=== PATIENT | male | born 1965 | race Caucasian/White ===

== ENCOUNTER 2017-02-06 10:23 | Day surgery (SDC) | payer OTHER ==
--- NOTE | ~2017-02-06 | EGD ---
EGD REPORT [facility] [address] [place] [address] NAME: BILL BAE : 67 STATUS : REG [facility] PAT#: [id number] AGE: 52 ADM/REG DATE : 02/06/17 MR#: [id number] REPORT SERV DATE: 02/06/17 DICTATED BY: JANUARY MCKENNA DATE: 02/06/17 REPORT STATUS : Draft [facility]ANSCRIBED BY: [facility] DATE: 02/06/17 Endoscopy Center Patient Name: Bill Bae Date of : 1965 Attending MD: JANUARY MCKENNA MD Procedure Date No Time: 02/06/2017 Procedure: Upper GI endoscopy Indications: Heartburn, Suspected esophageal reflux, Heme positive stool, Diarrhea Referring MD: LIZETT POND Medicines: as per anesthesia Complications: No immediate complications. Procedure: Pre-Anesthesia Assessment: - ASA Grade Assessment: II - A patient with mild systemic disease. After obtaining informed consent, the endoscope was passed under direct vision. Throughout the procedure, the patient's blood pressure, pulse, and oxygen saturations were monitored continuously. The GIF [id number] was introduced through the mouth, and advanced to the third part of duodenum. The upper GI endoscopy was accomplished without difficulty. The patient tolerated the procedure. Findings: The examined esophagus was normal. A small hiatus hernia was present. The examined duodenum was normal. Biopsies were taken with a cold forceps for histology. Impression: - Normal esophagus. - Hiatus hernia. - Normal examined duodenum. Biopsied. Recommendation: - Await pathology results. Procedure Code(s): --- Professional --- 97514, Esophagogastroduodenoscopy, flexible, transoral; with biopsy, single or multiple Diagnosis Code(s): --- Professional --- K44.9, Diaphragmatic hernia without obstruction or gangrene R12, Heartburn R19.5, Other fecal abnormalities EGD REPORT [facility] [address] [place] [address] NAME: BILL BAE : [birth year] STATUS : REG [facility] PAT#: [id number] AGE: 52 ADM/REG DATE : 02/06/17 MR#: [id number] REPORT SERV DATE: 02/06/17 DICTATED BY: JANUARY MCKENNA. DATE: 02/06/17 REPORT STATUS : Draft TRANSCRIBED BY: [employer] DATE: 02/06/17 R19.7, Diarrhea, unspecified CPT copyright 2013 [employer]. All rights reserved. The codes documented in this report are preliminary and upon voice network administrator review may be revised to meet current compliance requirements. JANUARY MCKENNA MD 02/06/2017 1:04 PM This report has been signed electronically. Number of Addenda: 0 Note Initiated On: 02/06/2017 12:47 PM Scope Withdrawal Time 0 hours 0 minutes 0 seconds [address] [facility] [address] [place] [address]
--- NOTE | ~2017-02-06 | EGD ---
EGD REPORT [facility] [address] [place] [address] NAME: BILL BAE : [birth year] STATUS : REG [facility] PAT#: [id number] AGE: 52 ADM/REG DATE : 02/06/17 MR#: [id number] REPORT SERV DATE: 02/06/17 DICTATED BY: DATE: REPORT STATUS : Draft TRANSCRIBED BY: [employer] DATE: 02/06/17 Endoscopy Center Patient Name: Bill Bae Date of : 1965 Attending MD: JANUARY MCKENNA MD Procedure Date No Time: 02/06/2017 Procedure: Colonoscopy Indications: Abdominal pain in the left lower quadrant, Clinically significant diarrhea of unexplained origin, Gastrointestinal occult blood loss, Rectal bleeding, FH of Colon Cancer - 1st degree relative Referring MD: LIZETT POND Medicines: as per anesthesia Complications: No immediate complications. Procedure: Pre-Anesthesia Assessment: - ASA Grade Assessment: II - A patient with mild systemic disease. After I obtained informed consent, the scope was passed under direct vision. Throughout the procedure, the patient's blood pressure, pulse, and oxygen saturations were monitored continuously. The [facility] [id number] was introduced through the anus and advanced to the cecum, identified by appendiceal orifice and ileocecal valve. The colonoscopy was performed without difficulty. The patient tolerated the procedure. The quality of the bowel preparation was adequate to identify polyps. Findings: The perianal and digital rectal examinations were normal. An infiltrative, polypoid, sessile, ulcerated partially obstructing large mass was found in the recto-sigmoid colon. The mass was partially circumferential. Oozing was present. This was biopsied with a cold forceps for histology. A few small and large-mouthed diverticula were found in the sigmoid colon, in the descending colon and in the transverse colon. Internal hemorrhoids were found during endoscopy and were mild. Four biopsies were obtained in the rectum and in the ascending colon with cold forceps for histology. Impression: - Likely malignant partially obstructing tumor in the recto-sigmoid colon. Removal was not done. Biopsied. - Diverticulosis in the sigmoid colon, in the descending colon and in the transverse colon. - Internal hemorrhoids. - Four biopsies were obtained in the rectum and in the EGD REPORT [address] [address] NAME: BILL BAE : [birth year] STATUS : REG [facility]#: [id number] AGE: 52 ADM/REG DATE : 02/06/17 MR#: [id number] REPORT SERV DATE: 02/06/17 DICTATED BY: DATE: REPORT STATUS : Draft TRANSCRIBED BY: [employer] DATE: 02/06/17 ascending colon. Recommendation: - Await pathology results. - Refer to a surgeon. Procedure Code(s): --- Professional --- 39353, Colonoscopy, flexible, proximal to splenic flexure; with biopsy, single or multiple Diagnosis Code(s): --- Professional --- D49.0, Neoplasm of unspecified behavior of digestive system K64.8, Other hemorrhoids K57.30, Diverticulosis of large intestine without perforation or abscess without bleeding R10.32, Left lower quadrant pain R19.7, Diarrhea, unspecified R19.5, Other fecal abnormalities K62.5, Hemorrhage of anus and rectum Z80.0, Family history of malignant neoplasm of digestive organs CPT copyright 2013 [employer]. All rights reserved. The codes documented in this report are preliminary and upon heel sander review may be revised to meet current compliance requirements. JANUARY MCKENNA MD 02/06/2017 1:42 PM This report has been signed electronically. Number of Addenda: 0 Note Initiated On: 02/06/2017 12:44 PM Scope Withdrawal Time 0 hours 13 minutes 34 seconds [id number] [place] [id number]
[~2017-02-06 10:23] MED LIST: COZAAR100 MG PO; NORV5 PO; PRILO PO
== END 2017-02-06 23:59 | disposition home or self-care (01) ==
LOC: DMU 10:23
PROVIDERS: Internal Medicine Gastroenterology
PROC: 0DBK8ZX Excision of Ascending Colon, Via Natural or Artificial Opening Endoscopic, Diagnostic (ICD-10-PCS; 2017-02-06)
PROC: 0DBN8ZX Excision of Sigmoid Colon, Via Natural or Artificial Opening Endoscopic, Diagnostic (ICD-10-PCS; principal; 2017-02-06 11:30)
PROC: 0DBP8ZX Excision of Rectum, Via Natural or Artificial Opening Endoscopic, Diagnostic (ICD-10-PCS; 2017-02-06 11:30)
DX: C19 Malignant neoplasm of rectosigmoid junction (principal); K64.8 Other hemorrhoids; K57.30 Diverticulosis of large intestine without perforation or abscess without bleeding; R10.32 Left lower quadrant pain; R19.7 Diarrhea, unspecified; R19.5 Other fecal abnormalities; R12 Heartburn; K44.9 Diaphragmatic hernia without obstruction or gangrene; K62.5 Hemorrhage of anus and rectum; K21.9 Gastro-esophageal reflux disease without esophagitis; I10 Essential (primary) hypertension; Z98.890 Other specified postprocedural states; Z80.0 Family history of malignant neoplasm of digestive organs; Z79.899 Other long term (current) drug therapy
CPT/HCPCS: 88305

== ENCOUNTER 2017-02-20 06:04 | Inpatient (IN) | payer OTHER ==
[2017-02-14 10:38] LABS: BASOPHILS 0.4 %; BASOPHILS ABSOLUTE 0.04 10/3/uL (0.0-0.16); EOSINOPHILS 3.6 %; EOSINOPHILS ABSOLUTE 0.33 10/3/uL (0.0-0.53); HEMATOCRIT 28.1 % (40.0-51.0); HEMOGLOBIN 7.8 g/dL (13.6-17.8); IMMATURE GRANULOCYTES 0.3 %; IMMATURE GRANULOCYTES ABSOLUTE 0.03 10/3/uL (0.0-0.11); LYMPHOCYTES ABSOLUTE 2.79 10/3/uL (0.67-4.30); MANUAL DIFF NO %; MEAN CORPUS HGB CONC 27.8 g/dL (32.0-36.0); MEAN CORPUSCULAR HEMOGLOB 17.8 pg (26.0-34.0); MEAN CORPUSCULAR VOLUME 64.2 fL (80-100); MEAN PLATELET VOLUME 9.7 fL (9.2-13.0); MONOCYTES 11.6 %; MONOCYTES ABSOLUTE 1.08 10/3/uL (0.21-1.20); NEUTROPHILS 54.1 %; NEUTROPHILS ABSOLUTE 5.02 10/3/uL (2.02-8.40); PLATELET COUNT 404 10/3/uL (150-400); RED CELL COUNT 4.38 10/6/uL (4.7-6.1); WHITE BLOOD CELLS 9.3 10/3/uL (4.5-10.5)
[2017-02-14 10:51] LABS: ALBUMIN 3.6 G/DL (3.5-5.0); ALKALINE PHOSPHATASE 69 U/L (45-117); BUN (BLOOD UREA NITROGEN) 15 MG/DL (6-23); CALCIUM, SERUM 9.1 MG/DL (8.5-10.4); CHLORIDE, SERUM 107 MMOL/L (96-112); CO2 (CARBON DIOXIDE) 27 MMOL/L (24-34); CREATININE 0.88 MG/DL (0.70-1.30); GFR AFRICAN AMERICAN 115 ML/MIN (>=60); GFR NON AFRICAN AMERICAN 99 ML/MIN (>=60); GLOBULIN 3.5 G/DL (2.5-4.1); GLUCOSE, SERUM 94 MG/DL (60-99); POTASSIUM, SERUM 4.5 MMOL/L (3.5-5.3); SGOT(AST) 20 U/L (5-40); SGPT(ALT) 28 U/L (5-65); SODIUM, SERUM 139 MMOL/L (135-148); TOTAL BILIRUBIN 0.3 MG/DL (0-1.2); TOTAL PROTEIN 7.1 G/DL (6.0-8.5)
[2017-02-14 10:53] LABS: ANISOCYTOSIS 1+ (5-10/OIF) (0-5/OIF)
[2017-02-14 10:54] LABS: HYPOCHROMIA 3+ (>30/OIF) (0-2/OIF); MICROCYTES 4+ (>50/OIF) (0-5/OIF); OVALOCYTES 1+ (3-10/OIF) (0-2/OIF); PLATELET ESTIMATE SLT INC (ADEQUATE); RBC MORPHOLOGY ABN (NORMAL)
--- NOTE | ~2017-02-20 | OP ---
Record Of Operation [facility] [address] [place]. [address] NAME: FARHAT DEL VALLE : [birth year] STATUS : ADM IN [facility]#: [id number] AGE: 52 ADM/REG DATE : 02/20/17 MR#: [id number] REPORT SERV DATE: 02/20/17 DICTATED BY: TITA HANEY III DATE: 02/20/17 REPORT STATUS : Draft TRANSCRIBED BY: MODL DATE: 02/20/17 DATE OF PROCEDURE: 02/20/2017 PREOPERATIVE DIAGNOSIS: Biopsy-proven cancer of the distal sigmoid colon associated GI bleeding and obstructive symptoms. POSTOPERATIVE DIAGNOSIS: Biopsy-proven cancer of the distal sigmoid colon associated GI bleeding and obstructive symptoms. PROCEDURE: Low anterior resection of the rectum with sigmoidoscopy and primary anastomosis. SURGEON: Tita Haney M.D. ANESTHESIA: General with intubation. COMPLICATIONS: None. ESTIMATED BLOOD LOSS: 30 mL. SPECIMENS: Distal sigmoid colon and proximal rectum. DRAINS: [place] and subcutaneous tissue. LAP AND SPONGE COUNT: Correct x3. BRIEF HISTORY: This 52-year-old male was recently diagnosed with a distal sigmoid colon cancer. This was a large cancer associated rectal bleeding, profound anemia, and obstructive symptoms. It was felt that low anterior resection of rectum or sigmoid colectomy was indicated. These procedures, the risks, benefits, alternatives, including not limited to the risk for bleeding, infection, enterotomy, injury to abdominal structure, postop small bowel obstruction, ileus, incisional hernia, dehiscence, anastomotic leak requiring reoperation, colostomy, ureteral injury, disturbance or loss of sexual function, fecal incontinence or urinary incontinence, and unforeseen complications including deep venous thrombosis, pulmonary embolus, myocardial infarction, stroke, pneumonia, and , were fully and completely explained to the patient and his family prior to surgery. The fact that this was a major operation with risk for major morbidity and mortality has been explained. The length of recovery was explained. The patient had questions, which were answered. He understood the risks and agreed to surgery as planned. FINDINGS: The patient had extremely large cancer of the distal sigmoid colon. The low anterior resection of the rectum was required in order to obtain clear margins distally. The patient had no evidence for carcinomatosis or peritoneal implants. DESCRIPTION OF PROCEDURE: After being appropriately identified and after discussing the risks of surgery with the patient's family again in the preoperative area and after appropriate bowel preparation at home, the patient was taken to the operating room and Record Of Operation [address] [place]. [address] NAME: FARHAT DEL VALLE : [birth year] STATUS : ADM IN PAT#: [id number] AGE: 52 ADM/REG DATE : 02/20/17 MR#: [id number] REPORT SERV DATE: 02/20/17 DICTATED BY: TITA HANEY III DATE: 02/20/17 REPORT STATUS : Draft TRANSCRIBED BY: NOE DATE: 02/20/17 placed in the supine position on the operating room table. General anesthesia was administered. He was intubated without difficulty. His legs were placed in stirrups. They were carefully and appropriately padded and protected. A Littlejohn catheter was inserted. The abdomen and perineum were prepped and draped sterilely in the usual fashion. After an appropriate "time-out" per discharge standards, a midline incision was made from just below the umbilicus towards the pubis. The incision was continued through subcutaneous tissue. The patient is moderately obese hence abdominal wall was very thick. The incision was continued through the fascia. Hemostasis was controlled. The abdominal cavity was entered. There was noted to be a large palpable obvious malignant mass at the distal sigmoid colon just above the peritoneal reflection. There was no evidence for carcinomatosis or peritoneal implants. Using sharp dissection, peritoneal reflection to the distal sigmoid colon and left colon was divided along the line of Toldt. The sigmoid colon was mobilized medially. We selected a point for division of the sigmoid colon near its junction with the left colon. A window was made mesentery to the colon at this point. A YAHIR stapler used to divide the colon at this point. Using sharp dissection, perineum from this point along the base of the mesentery was then scored with the cautery. Using sharp dissection, a bladder flap was raised anteriorly over the rectum. The tumor itself was above the peritoneal reflection, but the dissection required below the peritoneal reflection in proximal rectum in order to obtain clear margins. The mesocolon was then divided to the sigmoid colon along its base. This was done using the Harmonic scalpel. The inferior mesenteric artery and vein were individually isolated, ligated, as far proximal as possible. The dissection was continued distally. Using sharp dissection, the proximal rectum was mobilized. The lateral attachments on either side were carefully divided sharply. The mesorectum was carefully divided posteriorly so as to perform correct oncologic dissection of the lymphovascular supply to the first portion of the rectum. We continued our dissection into the proximal rectum mobilized the proximal rectum, several centimeters distal to the tumor. A contour stapler was used to divide the proximal rectum several centimeter below the peritoneal reflection. The mesentery to this portion of rectum was then divided along its base, so as to obtain an intact mesorectum. The specimen was thus removed and sent to pathology interpreted as containing the tumor with clear margins. In using the stapling device, the distal end of the rectum did not close well. For this reason, the distal rectum was reclosed after it had been divided, using a contour stapler. The rectum at this point, which had been in the staple line, was excised and this was sent as a distal rectal margin for permanent pathology. We then performed an end-to-end anastomosis between the divided proximal sigmoid colon, left colon, and the distal rectum. This was performed using the EEA stapler. A 2-0 Prolene pursestring was then placed around the divided end of the proximal sigmoid colon. The staple line was excised. Sizers were placed into the lumen of the colon, it was determined that a #29 EEA stapler was the appropriate size. The anvil was removed from the stapling device and placed into the lumen of the colon and the pursestring secured. Record Of Operation [place] [id number] [facility] [place]. [address] NAME: FARHAT DEL VALLE : 67 STATUS : ADM IN [facility]#: [id number] AGE: 52 ADM/REG DATE : 02/20/17 MR#: [id number] REPORT SERV DATE: 02/20/17 DICTATED BY: TITA HANEY III DATE: 02/20/17 REPORT STATUS : Draft TRANSCRIBED BY: MODL DATE: 02/20/17 At this time, rigid sigmoidoscopy was performed. The sigmoidoscope was passed into the rectal stump. Air was passed through the sigmoidoscope with order in the pelvis. The rectal stump was noted to be air tight with no evidence for leakage or extravasation of air bubbles. At this time, the EEA stapling device was passed into the rectum up to the rectal stump. The pin was opened and fired through the rectal stump. This pin was connected to the anvil in the left colon or proximal sigmoid colon. The stapling device was then carefully closed and fired. Upon completion of this, the anastomosis was patent to palpation. It was not twisted or kinked in anyway and was not under any tension. The anterior aspect of the anastomosis was reinforced with interrupted 3-0 silk sutures. Again, sigmoidoscopy was performed, sigmoidoscope was passed into the rectum. Air was passed through the anastomosis with saline in the pelvis. The air was noted to pass easily and rapidly through the anastomosis with no evidence for leakage or extravasation of air bubbles indicating watertight anastomosis. It should be noted the proximal distal donut rings were sent for permanent pathology. The distal donut ring is the most distal aspect of the resection. The pelvis was irrigated copiously with saline. Hemostasis was assured. The fascia was closed with a running looped #1 PDS suture. The subcutaneous tissue was closed with running 3-0 chromic suture over a Bernie drain, which was brought through the inferior aspect of the incision. The skin was closed with running subcuticular 4-0 Monocryl stitch. Dressings were applied. Anesthesia was reversed, and the patient was taken to the recovery room in stable condition. He tolerated the procedure well. His family was informed results of surgery. The patient will remain in the hospital for postoperative care. RHJ/MODL Tita Haney III, M.D. / [id number] CC: Vasquez Gomez III, M.D.
--- NOTE | ~2017-02-20 | PREOPHP ---
PreOp History and Physical [place] [id number] [facility] [place]. [address] NAME: FARHAT DEL VALLE : 67 STATUS : ADM IN [facility]#: [id number] AGE: 52 ADM/REG DATE : 02/20/17 MR#: [id number] REPORT SERV DATE: 02/20/17 DICTATED BY: TITA HANEY III DATE: 02/11/17 REPORT STATUS : Draft TRANSCRIBED BY: MODL DATE: 02/11/17 HISTORY OF PRESENT ILLNESS: This 52-year-old male comes to the operating room for low anterior resection of the rectum for biopsy-proven cancer of the distal sigmoid colon. The patient complains of change in bowel habits. He describes diarrhea. This has been associated with blood per rectum. The patient had a fistula repair in 2014 because of bleeding. He continued to have bleeding. He had a repeat colonoscopy recently which shows a large obstructing mass at the distal sigmoid colon. He comes now for low anterior resection of the rectum. The patient had a fistula repair again in 2014. There was bleeding at that time, which has persisted since that time. The patient complains of occasional lower abdominal pain and cramping. He has nausea without vomiting. He has a family history for colon cancer and his father had cancer of the colon. PAST MEDICAL HISTORY: 1. Hypertension. 2. History of rectal bleeding. ALLERGIES: NONE. MEDICATIONS: Losartan, amlodipine, and omeprazole. PAST SURGICAL HISTORY: Status post anal fistula repair by another surgeon. FAMILY HISTORY: Positive for colon cancer and diabetes. SOCIAL HISTORY: The patient has a previous history of tobacco use. He has no history of alcohol use. REVIEW OF SYSTEMS: The patient complains of fatigue, shortness of breath, and blood per rectum. PHYSICAL EXAMINATION: GENERAL: This is an obese male, in no acute distress. He is alert and oriented x3. VITAL SIGNS: Blood pressure 132/80, pulse 91, temp 97.5. HEENT: Unremarkable. Cranial nerves 2 through 12 were normal. LUNGS: Clear. CARDIAC: Normal. ABDOMEN: Soft. Nontender. No masses. EXTREMITIES: Normal. No edema. LABORATORY DATA: Colonoscopy shows a large obstructing mass at the rectosigmoid junction at 15 cm from the anus. Biopsy confirms this to be an adenocarcinoma. The patient's preoperative imaging studies are pending and CEA is pending. ASSESSMENT: 1. A 52-year-old male with biopsy-proven partly obstructing cancer of the distal sigmoid colon. 2. Recurrent rectal bleeding secondary to #1. PreOp History and Physical [address] [address] NAME: FARHAT DEL VALLE : 67 STATUS : ADM IN [facility]#: [id number] AGE: 52 ADM/REG DATE : 02/20/17 MR#: [id number] REPORT SERV DATE: 02/20/17 DICTATED BY: TITA HANEY III DATE: 02/11/17 REPORT STATUS : Draft TRANSCRIBED BY: NOE DATE: 02/11/17 3. Hypertension. 4. Obesity. PLAN: The patient comes to the operating room now for low anterior resection of the rectum. This procedure, the risks, benefits, and alternatives, including but not limited to the risk for bleeding, infection, enterotomy, injury to any abdominal structure, postop small bowel obstruction, ileus, incisional hernia, dehiscence, anastomotic leak, requiring reoperation with colostomy, ureteral injury and unforeseen complications including deep venous thrombosis, pulmonary embolus, myocardial infarction, stroke, pneumonia, and , have been fully and completely explained to the patient and his family at length prior to surgery. The fact that this is a major operation with risk for major morbidity and mortality has been explained. Possibility of anastomotic leak requiring reoperation with colostomy has been explained. Possible ureteral injury has been explained. The expected length of recovery has been explained. The patient's questions have been answered. He clearly and fully understands the risks and agrees to surgery as planned. ELENA/NOE Tita Haney III, M.D. / [id number] CC: Nick Noonan M.D.
--- NOTE | ~2017-02-20 | DS ---
Discharge Summary [facility] [address] [place]. [address] NAME: FARHAT DEL VALLE : 67 STATUS : DIS IN PAT#: [id number] AGE: 52 ADM/REG DATE : 02/20/17 MR#: [id number] REPORT SERV DATE: 03/06/17 DICTATED BY: TITA HANEY III DATE: 03/06/17 REPORT STATUS : Draft TRANSCRIBED BY: NOE DATE: 03/06/17 Data Collection from hospitalization DISCHARGE DIAGNOSES: 1. Biopsy-proven cancer of the distal sigmoid colon associated with gastrointestinal bleeding and obstructive symptoms. 2. Hypertension. 3. History of rectal bleeding. 4. Gastroesophageal reflux disease. 5. Morbid obesity. 6. Anemia. CONSULTATIONS: None. PROCEDURES: Low anterior resection of the rectum with sigmoidoscopy and primary anastomosis on 02/20/2017. PATHOLOGY: Rectosigmoid colon resection-adenocarcinoma; distal margin resected portion- benign colonic tissue; proximal anastomotic ring resected portion-benign colonic tissue; with distal anastomotic ring resected portion-benign colonic tissue. MEDICATIONS: Norvasc 5 mg every morning, Cozaar 100 mg every morning, Prilosec 20 mg every morning, and Percocet 7.5/325 one tablet three times a day as needed. CONDITION AT DISCHARGE: Stable. DISPOSITION: The patient was discharged home on a low-fat soft diet with activities as instructed. He would follow up with me on 03/05/2017. He would follow up with his primary care physician as needed. HOSPITAL COURSE: This is a 52-year-old man, who had recently been diagnosed with distal sigmoid colon cancer. This was a large cancer associated with rectal bleeding, profound anemia, and obstructive symptoms. Treatment options were discussed and it was elected to proceed with surgical intervention. He was admitted to the hospital at this time for further evaluation and treatment. Upon admission, he was taken to the operating room where he underwent the above-mentioned procedure. He tolerated this well and there were no complications. On postop day #1, he had no complaints. He was afebrile. The abdomen was soft. Clear liquids were started. The Littlejohn catheter was removed. He was evaluated by Physical Therapy. On postop day #2, he continued to do well. He was tolerating clear liquids. He was beginning to pass some gas per rectum. His diet was advanced to full liquids. The next day, he did have some stool and gas per rectum. IV fluids were discontinued. Discharge planning was performed. On 02/24/2017, he felt well and wanted to go home. He was eating well and passing stool. Discharge instructions were given. Due to his improved and stable condition, he was discharged home with the above-stated instructions. Information collected by: Sindi Galvan Discharge Summary [place] [id number] [facility] [place]. [address] NAME: FARHAT DEL VALLE : 67 STATUS : DIS IN PAT#: [id number] AGE: 52 ADM/REG DATE : 02/20/17 MR#: [id number] REPORT SERV DATE: 03/06/17 DICTATED BY: TITA HANEY III DATE: 03/06/17 REPORT STATUS : Draft TRANSCRIBED BY: NOE DATE: 03/06/17 I submit the above information as my discharge summary. TG/NOE Tita Haney III, M.D. / [id number] CC: Vasquez Gomez III, M.D.
[2017-02-20 07:18] LABS: HEMATOCRIT 27.6 % (40.0-51.0); HEMOGLOBIN 7.7 g/dL (13.6-17.8)
[2017-02-20 07:26] LABS: INTERNATIONAL NORMAL RATI 1.2 UNITS (-); PARTIAL THROMBO TIME 32.3 SEC (22.5-37.2); PROTIME (NOT ORD) 14.7 SEC (12.0-14.5)
[2017-02-21 05:11] LABS: BASOPHILS 0 %; EOSINOPHILS 0 %; IMMATURE GRANULOCYTES 0.3 %; IMMATURE GRANULOCYTES ABSOLUTE 0.04 10/3/uL (0.0-0.11); LYMPHOCYTES 8.3 %; LYMPHOCYTES ABSOLUTE 1.27 10/3/uL (0.67-4.30); MEAN CORPUS HGB CONC 27.8 g/dL (32.0-36.0); MEAN CORPUSCULAR HEMOGLOB 17.6 pg (26.0-34.0); MEAN CORPUSCULAR VOLUME 63.4 fL (80-100); MEAN PLATELET VOLUME 9.2 fL (9.2-13.0); MONOCYTES 7.4 %; MONOCYTES ABSOLUTE 1.13 10/3/uL (0.21-1.20); NEUTROPHILS ABSOLUTE 12.84 10/3/uL (2.02-8.40); PLATELET COUNT 345 10/3/uL (150-400)
[2017-02-21 05:14] LABS: HEMATOCRIT 24.1 % (40.0-51.0); HEMOGLOBIN 6.7 g/dL (13.6-17.8); WHITE BLOOD CELLS 15.3 10/3/uL (4.5-10.5)
[2017-02-21 05:17] LABS: MANUAL DIFF NO %
[2017-02-21 05:48] LABS: CALCIUM, SERUM 8.4 MG/DL (8.5-10.4); CHLORIDE, SERUM 111 MMOL/L (96-112); CO2 (CARBON DIOXIDE) 25 MMOL/L (24-34); GFR AFRICAN AMERICAN 101 ML/MIN (>=60); GFR NON AFRICAN AMERICAN 87 ML/MIN (>=60); POTASSIUM, SERUM 4.7 MMOL/L (3.5-5.3); SODIUM, SERUM 144 MMOL/L (135-148)
[2017-02-21 05:49] LABS: BUN (BLOOD UREA NITROGEN) 10 MG/DL (6-23); GLUCOSE, SERUM 148 MG/DL (60-99)
[2017-02-21 06:08] LABS: ANISOCYTOSIS 1+ (5-10/OIF) (0-5/OIF); PLATELET ESTIMATE ADQ (ADEQUATE)
[2017-02-21 06:09] LABS: ELLIPTOCYTES 1+ (3-10/OIF) (0-2/OIF); MACROCYTES 4+ (>50/OIF) (0-5/OIF); MICROCYTES 1+ (5-10/OIF) (0-5/OIF); POLYCHROMASIA 1+ (2-5/OIF) (0-1/OIF)
[2017-02-22 05:27] LABS: BASOPHILS 0.2 %; BASOPHILS ABSOLUTE 0.02 10/3/uL (0.0-0.16); EOSINOPHILS 0.9 %; EOSINOPHILS ABSOLUTE 0.11 10/3/uL (0.0-0.53); HEMATOCRIT 23.3 % (40.0-51.0); IMMATURE GRANULOCYTES 0.3 %; IMMATURE GRANULOCYTES ABSOLUTE 0.04 10/3/uL (0.0-0.11); LYMPHOCYTES 27.2 %; LYMPHOCYTES ABSOLUTE 3.19 10/3/uL (0.67-4.30); MEAN CORPUS HGB CONC 27.5 g/dL (32.0-36.0); MEAN CORPUSCULAR HEMOGLOB 17.5 pg (26.0-34.0); MEAN CORPUSCULAR VOLUME 63.8 fL (80-100); MEAN PLATELET VOLUME 9.3 fL (9.2-13.0); MONOCYTES 10.7 %; MONOCYTES ABSOLUTE 1.26 10/3/uL (0.21-1.20); NEUTROPHILS 60.7 %; NEUTROPHILS ABSOLUTE 7.11 10/3/uL (2.02-8.40); PLATELET COUNT 315 10/3/uL (150-400); RBC DISTRIBUTION WIDTH 18.4 % (12.0-16.0); RED CELL COUNT 3.65 10/6/uL (4.7-6.1); WHITE BLOOD CELLS 11.7 10/3/uL (4.5-10.5)
[2017-02-22 05:34] LABS: BUN (BLOOD UREA NITROGEN) 12 MG/DL (6-23); CALCIUM, SERUM 7.8 MG/DL (8.5-10.4); CHLORIDE, SERUM 112 MMOL/L (96-112); CO2 (CARBON DIOXIDE) 27 MMOL/L (24-34); CREATININE 0.86 MG/DL (0.70-1.30); GFR AFRICAN AMERICAN 116 ML/MIN (>=60); GFR NON AFRICAN AMERICAN 100 ML/MIN (>=60); POTASSIUM, SERUM 4.4 MMOL/L (3.5-5.3); SODIUM, SERUM 145 MMOL/L (135-148)
[2017-02-22 05:35] LABS: GLUCOSE, SERUM 105 MG/DL (60-99)
[2017-02-22 05:47] LABS: HEMOGLOBIN 6.4 g/dL (13.6-17.8)
[2017-02-22 05:48] LABS: MANUAL DIFF NO %
[2017-02-22 07:33] LABS: ANISOCYTOSIS 1+ (5-10/OIF) (0-5/OIF); HYPOCHROMIA 3+ (>30/OIF) (0-2/OIF); MICROCYTES 4+ (>50/OIF) (0-5/OIF); PLATELET ESTIMATE ADQ (ADEQUATE)
[2017-02-22 14:58] LABS: HEMATOCRIT 24.8 % (40.0-51.0)
[2017-02-22 15:13] LABS: HEMOGLOBIN 6.6 g/dL (13.6-17.8)
[2017-02-22 18:21] LABS: HEMOGLOBIN 7.5 g/dL (13.6-17.8)
[2017-02-22 18:22] LABS: HEMATOCRIT 27.4 % (40.0-51.0)
[2017-02-23 07:13] LABS: BASOPHILS 0.3 %; BASOPHILS ABSOLUTE 0.04 10/3/uL (0.0-0.16); EOSINOPHILS ABSOLUTE 0.24 10/3/uL (0.0-0.53); HEMATOCRIT 26.8 % (40.0-51.0); HEMOGLOBIN 7.4 g/dL (13.6-17.8); IMMATURE GRANULOCYTES 0.3 %; IMMATURE GRANULOCYTES ABSOLUTE 0.03 10/3/uL (0.0-0.11); LYMPHOCYTES 33.6 %; LYMPHOCYTES ABSOLUTE 3.96 10/3/uL (0.67-4.30); MEAN CORPUS HGB CONC 27.6 g/dL (32.0-36.0); MEAN CORPUSCULAR HEMOGLOB 17.4 pg (26.0-34.0); MEAN CORPUSCULAR VOLUME 62.9 fL (80-100); MEAN PLATELET VOLUME 9.7 fL (9.2-13.0); MONOCYTES 9.6 %; MONOCYTES ABSOLUTE 1.13 10/3/uL (0.21-1.20); NEUTROPHILS 54.2 %; NEUTROPHILS ABSOLUTE 6.39 10/3/uL (2.02-8.40); RBC DISTRIBUTION WIDTH 18.5 % (12.0-16.0); RED CELL COUNT 4.26 10/6/uL (4.7-6.1); WHITE BLOOD CELLS 11.8 10/3/uL (4.5-10.5)
[2017-02-23 07:16] LABS: MANUAL DIFF NO %; PLATELET COUNT 410 10/3/uL (150-400)
[2017-02-23 07:23] LABS: BUN (BLOOD UREA NITROGEN) 8 MG/DL (6-23); CALCIUM, SERUM 8.7 MG/DL (8.5-10.4); CHLORIDE, SERUM 108 MMOL/L (96-112); CO2 (CARBON DIOXIDE) 28 MMOL/L (24-34); CREATININE 0.98 MG/DL (0.70-1.30); GFR AFRICAN AMERICAN 103 ML/MIN (>=60); GFR NON AFRICAN AMERICAN 89 ML/MIN (>=60); GLUCOSE, SERUM 97 MG/DL (60-99); POTASSIUM, SERUM 4.3 MMOL/L (3.5-5.3); SODIUM, SERUM 140 MMOL/L (135-148)
[2017-02-23 07:39] LABS: ANISOCYTOSIS 1+ (5-10/OIF) (0-5/OIF); HYPOCHROMIA 3+ (>30/OIF) (0-2/OIF); MICROCYTES 4+ (>50/OIF) (0-5/OIF); PLATELET ESTIMATE SLT INC (ADEQUATE)
[2017-02-24 05:17] LABS: BASOPHILS 0.3 %; BASOPHILS ABSOLUTE 0.03 10/3/uL (0.0-0.16); EOSINOPHILS 2.9 %; EOSINOPHILS ABSOLUTE 0.25 10/3/uL (0.0-0.53); HEMATOCRIT 25.4 % (40.0-51.0); IMMATURE GRANULOCYTES 0.3 %; IMMATURE GRANULOCYTES ABSOLUTE 0.03 10/3/uL (0.0-0.11); LYMPHOCYTES 29.9 %; LYMPHOCYTES ABSOLUTE 2.58 10/3/uL (0.67-4.30); MEAN CORPUS HGB CONC 27.6 g/dL (32.0-36.0); MEAN CORPUSCULAR HEMOGLOB 17.3 pg (26.0-34.0); MEAN CORPUSCULAR VOLUME 62.7 fL (80-100); MEAN PLATELET VOLUME 9.4 fL (9.2-13.0); MONOCYTES 10.3 %; MONOCYTES ABSOLUTE 0.89 10/3/uL (0.21-1.20); NEUTROPHILS 56.3 %; NEUTROPHILS ABSOLUTE 4.85 10/3/uL (2.02-8.40); PLATELET COUNT 349 10/3/uL (150-400); RBC DISTRIBUTION WIDTH 18.5 % (12.0-16.0); RED CELL COUNT 4.05 10/6/uL (4.7-6.1); WHITE BLOOD CELLS 8.6 10/3/uL (4.5-10.5)
[2017-02-24 05:18] LABS: MANUAL DIFF NO %
[2017-02-24 05:37] LABS: BUN (BLOOD UREA NITROGEN) 9 MG/DL (6-23); CHLORIDE, SERUM 108 MMOL/L (96-112); CO2 (CARBON DIOXIDE) 29 MMOL/L (24-34); CREATININE 0.93 MG/DL (0.70-1.30); GFR AFRICAN AMERICAN 110 ML/MIN (>=60); GFR NON AFRICAN AMERICAN 95 ML/MIN (>=60); GLUCOSE, SERUM 99 MG/DL (60-99); POTASSIUM, SERUM 4.3 MMOL/L (3.5-5.3); SODIUM, SERUM 141 MMOL/L (135-148)
[2017-02-24 07:13] LABS: PLATELET ESTIMATE ADQ (ADEQUATE)
[2017-02-24 07:14] LABS: ANISOCYTOSIS 1+ (5-10/OIF) (0-5/OIF); HYPOCHROMIA 3+ (>30/OIF) (0-2/OIF); MICROCYTES 4+ (>50/OIF) (0-5/OIF); POLYCHROMASIA 1+ (2-5/OIF) (0-1/OIF)
[2017-02-24 07:15] LABS: GIANT PLATELET RARE
[2017-02-24] MEDS ORDERED: PERCOCET 7.5/321 TAB PO (08:55)
== END 2017-02-24 11:29 | disposition home or self-care (01) | DRG 330 ==
LOC: SSU1 06:04 → SSU2 07:29 → SDC/OF 08:02 → PACU 11:15 → 5SO 12:15
PROVIDERS: Family Medicine; Surgery
PROC: 0DBN0ZZ Excision of Sigmoid Colon, Open Approach (ICD-10-PCS; 2017-02-20)
PROC: 0DJD8ZZ Inspection of Lower Intestinal Tract, Via Natural or Artificial Opening Endoscopic (ICD-10-PCS; 2017-02-20)
PROC: 0DBP0ZZ Excision of Rectum, Open Approach (ICD-10-PCS; principal; 2017-02-20 09:00)
DX: C18.7 Malignant neoplasm of sigmoid colon (principal); K92.1 Melena; K56.69 Other intestinal obstruction; E66.01 Morbid (severe) obesity due to excess calories; I10 Essential (primary) hypertension; Z79.899 Other long term (current) drug therapy; Z80.0 Family history of malignant neoplasm of digestive organs; Z83.3 Family history of diabetes mellitus; E66.9 Obesity, unspecified; Z68.37 Body mass index [BMI] 37.0-37.9, adult
CPT/HCPCS: 36415; 71020; 80048; 80053; 82378; 85014; 85018; 85025; 85610; 85730; 86850; 86900; 86901; 86920; 88309; 88341; 88342; 93005; 97161-GP; A9270-GY; C1769; J0690; J1885; J2250; J2270; J2405; J2710; J2765; J2795; J3010